=== PATIENT | female | born 1985 ===

== ENCOUNTER → 2018-01-15 18:07 | Outpatient (CLI) | payer OTHER | END | disposition home or self-care (01) | LOC: RAD 18:07 | DX: R51 Headache (principal); J34.89 Other specified disorders of nose and nasal sinuses ==

== ENCOUNTER 2018-01-16 10:52 | Outpatient (CLI) | payer OTHER | END 2018-01-16 11:04 | disposition home or self-care (01) | LOC: TOM 10:52 | DX: R51 Headache (principal); J34.89 Other specified disorders of nose and nasal sinuses ==

== ENCOUNTER 2018-01-16 11:57 | Outpatient (CLI) | payer OTHER ==
[~2018-01-16] VITALS: Ht 162.6 cm; Wt 61.2 kg
== END 2018-01-16 12:15 | disposition home or self-care (01) ==
LOC: OFIC 805 11:57
DX: J30.89 Other allergic rhinitis (principal); G44.89 Other headache syndrome; R09.81 Nasal congestion

== ENCOUNTER 2019-03-16 13:23 | Outpatient (CLI) | payer OTHER | END 2019-03-16 13:33 | disposition home or self-care (01) | LOC: RAD 13:23 | DX: M54.2 Cervicalgia (principal) ==